=== PATIENT | female | born 1955 | race Caucasian/White ===

== ENCOUNTER → 2020-12-07 | Outpatient (CLI) | payer MEDICARE ==
[2020-12-08 08:13] LABS: RHEUMATOID ARTHRITIS FACTOR <10.0 IU/mL (0.0-13.9)
[2020-12-09 00:09] LABS: CCP ANTIBODIES IGG/IGA 14 units (0-19)
== END ==
LOC: LAB 11:59
PROVIDERS: Nurse Practitioner Family
DX: M25.50 Pain in unspecified joint (principal); R76.8 Other specified abnormal immunological findings in serum; D89.9 Disorder involving the immune mechanism, unspecified
CPT/HCPCS: 36415; 83520; 85652; 86140; 86200; 86431